=== PATIENT | male | born 1960 | race Caucasian/White ===

== ENCOUNTER 2016-08-06 09:04 | Inpatient (IN) | payer MEDICARE, MEDICAID ==
[~2016-08-06] VITALS: Ht 182.9 cm; Wt 112.1 kg
[2016-08-06] VITALS (24 sets, daily range): BP systolic 85–122; RESP 14–27; TEMP 97.5–99; Ht 182.9 cm; Wt 112.1 kg
[~2016-08-06 09:04] MED LIST: LIDOCAINE 2% SYR 5 ML IV ONE; PROPOFOL 50ML PER ML IV ONE
[2016-08-06] MEDS ORDERED: SODIUM CHLORIDE 0.9% 1,000 ML IV SCH (09:10)
[2016-08-06] MEDS ORDERED: DEXTROSE 50% SYRINGE 50 ML IV PRN (09:10)
[2016-08-06] MEDS ORDERED: GLUCAGON 1 MG VIAL IM PRN (09:10)
[2016-08-06] MEDS ORDERED: LACTULOSE SOLN 20GM/30ML UDC PO PRN (09:10)
[2016-08-06] MEDS ORDERED: ONDANSETRON 4 MG VIAL IV PUSH PRN (09:10)
[2016-08-06] MEDS ORDERED: ALU/MAG/SIM 30 ML UDC PO PRN (09:10)
[2016-08-06] MEDS ORDERED: SALINE FLUSH 10 ML FLUSH PRN (09:10)
[2016-08-06] MEDS ORDERED: PROMETHAZINE 25 MG/ML VIAL IV PRN (09:10)
[2016-08-06] MEDS ORDERED: LIDOCAINE 2% SYR 5 ML IV ONE (10:00)
[2016-08-06] MEDS ORDERED: PROPOFOL 50ML PER ML IV ONE (10:00)
[2016-08-06] MEDS: PANTOPRAZOLE 40 MG VIAL IV SCH ×2 (12:37→20:42)
[2016-08-06] MEDS: ACETAMINOPHEN 325 MG TAB PO PRN (12:37)
[2016-08-06] MEDS: SALINE FLUSH 10 ML FLUSH SCH (20:42)
[2016-08-07] VITALS (55 sets, daily range): BP systolic 93–135; RESP 15–29; TEMP 98.1–99.7
[2016-08-07] MEDS: SODIUM CHLORIDE 0.9% FLUSH BAG 500 ML IV SCH (04:45)
[2016-08-07] MEDS: SALINE FLUSH 10 ML FLUSH SCH ×2 (07:39→20:16)
[2016-08-07] MEDS: PANTOPRAZOLE 40 MG VIAL IV SCH ×2 (08:10→20:16)
[2016-08-07] MEDS: ACETAMINOPHEN 325 MG TAB PO PRN ×2 (12:13→18:57)
[2016-08-08] VITALS (11 sets, daily range): BP systolic 100–139; RESP 14–24; TEMP 97–98.7
[2016-08-08] MEDS: ACETAMINOPHEN 325 MG TAB PO PRN ×2 (00:27→23:46)
[2016-08-08] MEDS: SODIUM CHLORIDE 0.9% FLUSH BAG 500 ML IV SCH (03:48)
[2016-08-08] MEDS: PANTOPRAZOLE 40 MG VIAL IV SCH (07:59)
[2016-08-08] MEDS: SALINE FLUSH 10 ML FLUSH SCH ×2 (07:59→20:57)
[2016-08-08] MEDS ORDERED: PEG/E-LYTE 4,000 ML BTL PO ONE (14:20)
[2016-08-09] VITALS (8 sets, daily range): BP systolic 125–148; RESP 18–20; TEMP 97.7–98.9
[2016-08-09] MEDS: SODIUM CHLORIDE 0.9% FLUSH BAG 500 ML IV SCH (02:26)
[2016-08-09] MEDS ORDERED: PEG/E-LYTE 4,000 ML BTL PO ONE ×2 (04:00→14:15)
[2016-08-09] MEDS: SALINE FLUSH 10 ML FLUSH SCH ×2 (07:45→20:16)
[2016-08-09] MEDS: DILAUDID 1 MG/ML AMP IV PRN ×2 (10:20→16:45)
[2016-08-09] MEDS ORDERED: MISSING DOSE XX ONE (16:00)
[2016-08-09] MEDS: PANTOPRAZOLE 40 MG TAB PO SCH (16:44)
[2016-08-10] VITALS (9 sets, daily range): BP systolic 92–147; RESP 15–22; TEMP 97.2–98.8
[2016-08-10] MEDS: DILAUDID 1 MG/ML AMP IV PRN ×2 (00:02→10:08)
[2016-08-10] MEDS ORDERED: PEG/E-LYTE 4,000 ML BTL PO ONE (04:00)
[2016-08-10] MEDS: SODIUM CHLORIDE 0.9% FLUSH BAG 500 ML IV SCH (05:50)
[2016-08-10] MEDS: PANTOPRAZOLE 40 MG TAB PO SCH ×2 (06:09→15:53)
[2016-08-10] MEDS: SALINE FLUSH 10 ML FLUSH SCH ×2 (08:00→20:06)
[2016-08-11] MEDS: DILAUDID 1 MG/ML AMP IV PRN ×4 (02:36→21:44)
[2016-08-11 03:55] VITALS: BP_SYST 133; RESP 20; TEMP 97.7
[2016-08-11] MEDS: SODIUM CHLORIDE 0.9% FLUSH BAG 500 ML IV SCH (06:00)
[2016-08-11] MEDS: PANTOPRAZOLE 40 MG TAB PO SCH ×2 (06:44→16:44)
[2016-08-11 07:31] VITALS: BP_SYST 134; RESP 18; TEMP 97.9
[2016-08-11] MEDS: SALINE FLUSH 10 ML FLUSH SCH ×2 (08:07→20:00)
[2016-08-11 11:24] VITALS: BP_SYST 142; RESP 20; TEMP 98.5
[2016-08-11 14:01] VITALS: BP_SYST 156; RESP 20; TEMP 98.5
[2016-08-11 15:34] VITALS: BP_SYST 150; RESP 16; TEMP 98.6
[2016-08-11 19:48] VITALS: BP_SYST 128; RESP 16; TEMP 99
[2016-08-12 00:17] VITALS: BP_SYST 136; RESP 18; TEMP 98.9
[2016-08-12] MEDS: DILAUDID 1 MG/ML AMP IV PRN ×4 (02:23→12:07)
[2016-08-12] MEDS: SODIUM CHLORIDE 0.9% FLUSH BAG 500 ML IV SCH (04:57)
[2016-08-12] MEDS: PANTOPRAZOLE 40 MG TAB PO SCH ×2 (06:23→16:19)
[2016-08-12 07:42] VITALS: BP_SYST 133; RESP 18; TEMP 98.9
[2016-08-12] MEDS: SALINE FLUSH 10 ML FLUSH SCH (08:29)
[2016-08-12 11:20] VITALS: BP_SYST 136; RESP 18; TEMP 99
[2016-08-12 13:01] VITALS: BP_SYST 136; RESP 18; TEMP 99
[2016-08-12 14:21] VITALS: BP_SYST 137; RESP 16; TEMP 98.8
== END 2016-08-12 17:12 | disposition home or self-care (01) | DRG 811 ==
LOC: ENRESERVDT → ENRESERVTM → ENPENDDIS 11:18 → ICU 11:18 → 4THE 08-07 15:19
PROVIDERS: ADMIT Internal Medicine Nephrology; ATTEND Internal Medicine Nephrology
PROC: 5A1D60Z (ICD-10-PCS; principal; 2016-08-06)
PROC: 0DJD8ZZ Inspection of Lower Intestinal Tract, Via Natural or Artificial Opening Endoscopic (ICD-10-PCS; 2016-08-10)
DX: D62 Acute posthemorrhagic anemia (principal); G93.49 Other encephalopathy; E11.22 Type 2 diabetes mellitus with diabetic chronic kidney disease; I12.0 Hypertensive chronic kidney disease with stage 5 chronic kidney disease or end stage renal disease; N18.6 End stage renal disease; K92.2 Gastrointestinal hemorrhage, unspecified; E86.1 Hypovolemia; Z99.2 Dependence on renal dialysis; K57.30 Diverticulosis of large intestine without perforation or abscess without bleeding; E87.5 Hyperkalemia; E78.00 Pure hypercholesterolemia, unspecified; F32.9 Major depressive disorder, single episode, unspecified; F41.9 Anxiety disorder, unspecified
CPT/HCPCS: 36430; 71010; 80053; 80069; 82947; 83605; 85014; 85018; 85025; 85610; 85730; 86850; 86900; 86901; 86923; 86945; 88305

== ENCOUNTER 2016-08-23 09:44 | Inpatient (IN) | payer MEDICARE, MEDICAID ==
[~2016-08-23] VITALS: Ht 182.9 cm; Wt 108.1 kg
[~2016-08-23 09:44] MED LIST changes: -LIDOCAINE 2% SYR 5 ML IV ONE; -PROPOFOL 50ML PER ML IV ONE; +PROPOFOL 50ML VIAL IV ONE
[2016-08-23] MEDS ORDERED: SODIUM CHLORIDE 0.9% 1,000 ML IV PRN (11:20)
[2016-08-23] MEDS ORDERED: ONDANSETRON 4 MG VIAL IV PRN (11:20)
[2016-08-23] MEDS ORDERED: ONDANSETRON 4 MG VIAL IV PUSH PRN (11:20)
[2016-08-23] MEDS ORDERED: SODIUM CHLORIDE 0.9% 1,000 ML IV SCH ×2 (11:20)
[2016-08-23] MEDS ORDERED: ALBUMIN HUMAN 25GM (25%) 100 ML IV PRN (11:20)
[2016-08-23 15:56] VITALS: BP_SYST 132; RESP 18; TEMP 97.4
[2016-08-23] MEDS: ACETAMINOPHEN 325 MG TAB PO PRN ×2 (17:08→23:35)
[2016-08-23 18:24] VITALS: Ht 182.9 cm; Wt 108.1 kg
[2016-08-23] MEDS ORDERED: hydrOXYzine 25 MG TAB PO PRN (18:45)
[2016-08-23] MEDS: LORATADINE 10 MG TAB PO SCH (18:51)
[2016-08-23] MEDS: DILAUDID 1 MG/ML AMP IV PRN (19:41)
[2016-08-23 19:55] VITALS: BP_SYST 128; RESP 18; TEMP 97.5
[2016-08-23 20:05] VITALS: BP_SYST 128; RESP 18; TEMP 97.5
[2016-08-23 23:10] VITALS: BP_SYST 140; RESP 20; TEMP 98.3
[2016-08-23 23:11] VITALS: BP_SYST 108; RESP 20; TEMP 98.2
[2016-08-23] MEDS: PANTOPRAZOLE 40 MG VIAL IV SCH (23:40)
[2016-08-23 23:45] VITALS: BP_SYST 128; RESP 20; TEMP 99.5
[2016-08-24] VITALS (18 sets, daily range): BP systolic 95–128; RESP 8–20; TEMP 97–98.7
[2016-08-24] MEDS: DILAUDID 1 MG/ML AMP IV PRN ×6 (00:04→22:22)
[2016-08-24] MEDS ORDERED: MISSING DOSE XX ONE (08:30)
[2016-08-24] MEDS: LORATADINE 10 MG TAB PO SCH (08:42)
[2016-08-24] MEDS: PANTOPRAZOLE 40 MG VIAL IV SCH ×2 (08:42→20:00)
[2016-08-25 00:15] VITALS: BP_SYST 124; RESP 18; TEMP 97.8
[2016-08-25] MEDS: DILAUDID 1 MG/ML AMP IV PRN ×5 (02:46→21:30)
[2016-08-25 03:00] VITALS: BP_SYST 123; RESP 16; TEMP 97.3
[2016-08-25 07:18] VITALS: BP_SYST 129; RESP 18; TEMP 97.5
[2016-08-25] MEDS: PANTOPRAZOLE 40 MG VIAL IV SCH ×2 (08:48→19:58)
[2016-08-25] MEDS: LORATADINE 10 MG TAB PO SCH (08:48)
[2016-08-25 10:53] VITALS: BP_SYST 134; RESP 18; TEMP 97.4
[2016-08-25 14:29] VITALS: BP_SYST 144; RESP 18; TEMP 97.5
[2016-08-25 19:00] VITALS: BP_SYST 133; RESP 18; TEMP 97.7
[2016-08-26] VITALS (7 sets, daily range): BP systolic 118–147; RESP 16–18; TEMP 97.4–98.7
[2016-08-26] MEDS: DILAUDID 1 MG/ML AMP IV PRN ×5 (01:53→20:03)
[2016-08-26] MEDS ORDERED: MISSING DOSE XX ONE (07:45)
[2016-08-26] MEDS: LORATADINE 10 MG TAB PO SCH (08:10)
[2016-08-26] MEDS: PANTOPRAZOLE 40 MG VIAL IV SCH (08:10)
[2016-08-26] MEDS: PANTOPRAZOLE 40 MG TAB PO SCH (15:53)
[2016-08-27] MEDS: DILAUDID 1 MG/ML AMP IV PRN ×3 (00:02→09:33)
[2016-08-27 03:10] VITALS: BP_SYST 158; RESP 18; TEMP 97.5
[2016-08-27] MEDS: PANTOPRAZOLE 40 MG TAB PO SCH (05:21)
[2016-08-27 07:34] VITALS: BP_SYST 165; RESP 18; TEMP 97.5
[2016-08-27] MEDS: LORATADINE 10 MG TAB PO SCH (08:16)
[2016-08-27 13:51] VITALS: BP_SYST 165; RESP 18; TEMP 97.5
[2016-08-27 14:48] VITALS: BP_SYST 145; RESP 20; TEMP 98
[2016-08-27 14:52] VITALS: BP_SYST 129; RESP 18; TEMP 97.9
[2016-08-27 14:54] VITALS: BP_SYST 130; RESP 20; TEMP 98
[2016-08-27] MEDS: ACETAMINOPHEN 325 MG TAB PO PRN (15:29)
== END 2016-08-27 15:49 | disposition home or self-care (01) | DRG 377 ==
LOC: ENRESERVTM → ENRESERVDT → 4THW 15:36 → ENPENDDIS 15:36
PROVIDERS: ADMIT Internal Medicine Nephrology; ATTEND Internal Medicine Nephrology
PROC: 5A1D60Z (ICD-10-PCS; principal; 2016-08-23)
PROC: 0DB98ZX Excision of Duodenum, Via Natural or Artificial Opening Endoscopic, Diagnostic (ICD-10-PCS; 2016-08-24)
PROC: 0DB68ZX Excision of Stomach, Via Natural or Artificial Opening Endoscopic, Diagnostic (ICD-10-PCS; 2016-08-24)
PROC: 0DB48ZX Excision of Esophagogastric Junction, Via Natural or Artificial Opening Endoscopic, Diagnostic (ICD-10-PCS; 2016-08-24)
DX: K55.21 Angiodysplasia of colon with hemorrhage (principal); N18.6 End stage renal disease; I12.0 Hypertensive chronic kidney disease with stage 5 chronic kidney disease or end stage renal disease; E11.22 Type 2 diabetes mellitus with diabetic chronic kidney disease; D62 Acute posthemorrhagic anemia; F17.210 Nicotine dependence, cigarettes, uncomplicated; Z99.2 Dependence on renal dialysis; K31.7 Polyp of stomach and duodenum; K44.9 Diaphragmatic hernia without obstruction or gangrene; K22.719 Barrett's esophagus with dysplasia, unspecified; E66.9 Obesity, unspecified; Z68.32 Body mass index [BMI] 32.0-32.9, adult; F32.9 Major depressive disorder, single episode, unspecified; E78.00 Pure hypercholesterolemia, unspecified
CPT/HCPCS: 36430; 80048; 85014; 85018; 85025; 86850; 86900; 86901; 86923; 87340; 88305